=== PATIENT | female | born 1965 | race Two or more races ===

== ENCOUNTER 2021-10-04 16:22 | Emergency (ER) | payer OTHER ==
[~2021-10-04] VITALS: Ht 142.2 cm; Wt 61.2 kg
[2021-10-04 17:40] VITALS: BP 138/81
[2021-10-04] MEDS ORDERED: traMADol HCL 50 MG TAB PO ONE (17:45)
== END 2021-10-04 18:10 | disposition home or self-care (01) ==
LOC: ER 16:22
DX: S63.502A Unspecified sprain of left wrist, initial encounter (principal); M19.042 Primary osteoarthritis, left hand; Z88.8 Allergy status to other drugs, medicaments and biological substances; X50.1XXA Overexertion from prolonged static or awkward postures, initial encounter; Y93.89 Activity, other specified; Y92.89 Other specified places as the place of occurrence of the external cause; Y99.0 Civilian activity done for income or pay
CPT/HCPCS: 29125; 73110